=== PATIENT | female | born 2000 | race American Indian/Alaskan Native ===

== ENCOUNTER 2024-10-04 14:59 | Emergency (ER) | payer MEDICAID, SELFPAY ==
[2024-10-04 15:00] VITALS: BMI 38.2
[2024-10-04 15:18] VITALS: BP 137/88; PULSE 100; RESP 18; TEMP 36.9; O2SAT 99
--- NOTE | 2024-10-04 15:27 | XR_ITS ---
Examination: Pelvic ultrasound, transabdominal, complete Technique: Transabdominal ultrasound of the pelvis performed using grayscale imaging Date and time of exam: October 04, 2024 1545 hours INDICATIONS: Pelvic pain vaginal bleeding beginning 3 days ago FINDINGS: Uterus 7.1 cm endometrial stripe 1.6 cm No uterine mass or intrauterine gestation Right ovary 3.0 cm arterial flow Left ovary 7.8 cm arterial flow, simple right ovarian cyst 6.0 x 5.1 x 5.5 cm IMPRESSION: Simple right ovarian cyst 6.0 x 5.1 x 5.5 cm
--- NOTE | 2024-10-04 15:28 | PD.EDRME ---
Rapid Medical Screening Exam [facility] Arrival date/time: 10/04/24 14:59 24-year-old female with no known medical history presents to the emergency room with a chief complaint of vaginal bleeding and pelvic pain x 2 days. Patient denies being and states she has not on her menses. I have greeted and performed a focused initial assessment of this patient. A comprehensive ED assessment and evaluation of the patient, analysis of all test results, and completion of the medical decision making process will be conducted by additional ED providers. Chief Complaint: Vaginal Bleeding Time Seen by Provider: 10/04/24 15:03 Vital signs: Vital Signs Temperature 98.5 F 10/04/24 15:18 Pulse Rate 100 10/04/24 15:18 Respiratory Rate 18 10/04/24 15:18 Blood Pressure 137/88 H 10/04/24 15:18 Pulse Oximetry (%) 99 10/04/24 15:18 Oxygen Delivery Method Room Air 10/04/24 15:18 Vital signs reviewed by provider: Yes
[2024-10-04 15:49] LABS: Basophils % (Auto) 0 % (0-2.5); Eosinophils # (Auto) 0.3 Thou/mm3 (0.0-0.5); Eosinophils % (Auto) 4 % (0-10); Hematocrit 31.7 % (36.0-46.0); Hemoglobin 9.8 g/dL (12.0-16.0); Immature Granulocytes % (Auto) 0 % (0-0); Immature Granulocytes Auto 0.03 Thou/mm3 (0.00-0.00); Lymphocytes # (Auto) 1.4 Thou/mm3 (1.0-4.8); Lymphocytes % (Auto) 16 % (10-50); Mean Corpuscular HGB Conc 30.9 g/dl (31.0-37.0); Mean Corpuscular Hemoglobin 20.5 pg (25.0-35.0); Mean Corpuscular Volume 66 fL (80-100); Monocytes # (Auto) 0.4 Thou/mm3 (0.0-0.8); Monocytes % (Auto) 5 % (0-12); Neutrophils # (Auto) 6.5 Thou/mm3 (1.8-7.7); Neutrophils % (Auto) 75 % (37-80); Nucleated Red Blood Cell % 0 /100 WBC (0); Platelet Count 349 Thou/mm3 (140-440); RDW Standard Deviation 45.1 fL (36.4-46.3); Red Blood Count 4.78 Miln/mm3 (4.00-5.20); White Blood Count 8.7 Thou/mm3 (3.6-11.0)
[2024-10-04 16:04] LABS: Partial Thromboplastin Time 24.3 Seconds (22.0-36.0); Prothrombin Time 10.9 Seconds (9.0-12.2)
[2024-10-04 16:07] LABS: Alanine Aminotransferase 66 U/L (10-49); Albumin, Serum 4.6 gm/dL (3.5-5.0); Albumin/Globulin Ratio 1.3 (1.2-2.2); Alkaline Phosphatase 107 U/L (46-116); Anion Gap 9 (7-16); Aspartate Amino Transferase 86 U/L (0-34); BUN/Creatinine Ratio 8 Ratio (12-20); Bilirubin,Total 0.5 mg/dL (0.3-1.2); Blood Urea Nitrogen 8 mg/dL (9-23); Carbon Dioxide 26.1 mMol/L (20.0-31.0); Chloride 104 mMol/L (98-107); Estimated Creatinine Clearance 104.9 mL/min (>60); Globulin 3.5 gm/dL (2.3-3.5); Glucose 127 mg/dL (74-106); Osmolality,Calculated 277 (275-295); Potassium 3.6 mMol/L (3.4-5.1); Sodium 139 mMol/L (136-145); Total Protein 8.1 gm/dL (5.7-8.2); eGFR > 60 See Note
[2024-10-04 16:13] LABS: HCG,Qualitative Serum Negative
[2024-10-04 18:20] VITALS: BP 116/68; PULSE 83; RESP 17; TEMP 36.6; O2SAT 98
[2024-10-04 18:36] LABS: Path Review Blood Smear Sent to Pathologist
--- NOTE | 2024-10-04 18:57 | PD.EDVAGBL ---
ED OB Contraction Preg RMI/HPI General Chief complaint: Vaginal Bleeding Stated complaint: VAGINAL BLEEDING/PAIN X2 DAYS Time Seen by Provider: 10/04/24 15:03 Arrival date/time: 10/04/24 14:59 RME / HPI RME / HPI Narrative: 24-year-old female with no known medical history presents to the emergency room with a chief complaint of vaginal bleeding and pelvic pain x 2 days. Patient denies being and states she has not on her menses. Her last menstruation was 2 weeks ago. Denies any dizziness denies any other complaints no medication was taken prior to arrival. Related Data Previous Rx's ?Medication ?Instructions ?Recorded medroxyprogesterone 10 mg tablet 10 mg PO QDAY #10 tabs 10/04/24 (Provera) tranexamic acid 650 mg tablet 650 mg PO Q12H #14 tabs 10/04/24 Allergies Allergy/AdvReac Type Severity Reaction Status Date / Time No Known Allergies Allergy Verified 10/04/24 15:03 Review of Systems Review of Systems Narrative Review of Systems: Review of system reviewed and within normal limits except mentioned in HPI ED Exam Narrative Physical exam: VITAL SIGNS: Reviewed. GENERAL APPEARANCE: Alert and interactive, follows commands, no acute distress, HEAD AND FACE: Non-traumatic. ENT: PERRL, pink conjunctivitis, eyelid no trauma, Mucous membrane moist. NECK: Supple, nontender, no nuchal rigidity. CHEST: No tenderness, no crepitus, no paradoxical movement, no retractions. LUNGS: Clear, well ventilated, symmetric, no rales, no wheezing, no ronchi, no stridor, good breath sounds bilaterally. HEART: Regular rate, regular rhythm, no murmur, no gallops. ABDOMEN: Soft, positive bowel sounds, nondistended, no guarding, nontender, no rebound, no masses, RECTAL: Deferred. GENITAL: Deferred. NEUROLOGICAL: Gross motor function intact sensory function intact, Appropriate for age. MUSCULOSKELETAL: low back nontender, full range of motion. EXTREMITIES: Nontender, full range of motion. SKIN: Color pink, dry, no rash, no lacerations, no abrasions, no contusions. LYMPHATICS: Deferred. Course Quality Measures none Orders Category Date Time Status US pelvic complete Stat Exams 10/04/24 15:27 Completed CBC Stat Lab 10/04/24 15:37 Completed CMP [Comprehensive Metabolic Panel] Stat Lab 10/04/24 15:37 Completed HCG,Qualitative Serum Stat Lab 10/04/24 15:37 Completed PT [Prothrombin Time with INR] Stat Lab 10/04/24 15:37 Completed PTT [Partial Thromboplastin Time] Stat Lab 10/04/24 15:37 Completed Path Review Blood Smear Stat Lab 10/04/24 15:37 Completed Type and Screen Stat Lab 10/04/24 15:37 Completed Vital Signs Vital signs: Vital Signs Temperature 98.5 F 10/04/24 15:18 Pulse Rate 100 10/04/24 15:18 Respiratory Rate 18 10/04/24 15:18 Blood Pressure 137/88 H 10/04/24 15:18 Pulse Oximetry (%) 99 10/04/24 15:18 Oxygen Delivery Method Room Air 10/04/24 15:18 Vaginal Bleeding MDM Narrative MDM Narrative: 24-year-old female with no known medical history presents to the emergency room with a chief complaint of vaginal bleeding and pelvic pain x 2 days. Patient denies being and states she has not on her menses. Her last menstruation was 2 weeks ago. Denies any dizziness denies any other complaints no medication was taken prior to arrival. Patient hemoglobin was noted to be 9.8, hematocrit of 31.7 blood sugar labs unremarkable she is not ultrasound showed ovarian cyst otherwise unremarkable. Patient will be sent home on Provera and tranexamic acid Patient appears nontoxic and hemodynamically stable. Patient discharged home and instructed to follow-up with primary care provider in 24 to 48 hours. Instructed to return to the emergency department immediately if worsening of symptoms Patient data External records reviewed:: None Clinical information provided by:: patient Social determinants that could affect healthcare access:: none Patient has the following chronic illnesses:: None How is presenting disease/condition affected by chronic disease/condition?: no chronic disease Evaluation data The following diagnostics were reviewed and interpreted by me:: lab results and radiology exam(s) Lab and/or radiology exams considered but not ordered:: None Interpretation Summary: See results MDM Medications / Prescriptions Medications or Prescriptions considered but not ordered:: None Medication administrations:: None Consultations Consultation(s) initiated? (list below): No Diagnosis Vaginal Bleeding Differential Diagnosis: dysfunctional uterine bleeding and menometrorrhagia Most likely diagnosis given after review of the tests above:: Menometrorrhagia Admission Indicated Admission indicated?: not indicated Explain why admission is indicated or not indicated:: Stable Admission Request Was there a request for admission?: No Disposition Plan Disposition Plan: Discharge Discharge Attestation Discharge Attestation: The patient was given an opportunity to ask questions and understood the discharge instructions. Discharge instructions specifically effects, indications for sooner follow up or return to the emergency department, and the expected course of current diagnosis. Patient condition: Stable Discharge Plan Plan Patient Disposition: HOME (Self Care) Discharge Disposition comment: stable Prescriptions/Referrals Prescriptions/Med Rec: New medroxyprogesterone [Provera] 10 mg tablet 10 mg PO QDAY Qty: 10 0RF tranexamic acid 650 mg tablet 650 mg PO Q12H Qty: 14 0RF Referrals: No Primary/Family,Physician [Primary Care Provider] - In 1 week Problem List Clinical Impression: Dysfunctional uterine bleeding Patient/Caregiver Discharge Instructions Education Materials: ED Dysfunctional Uterine Bleeding Additional Instructions: Thank you for the opportunity for serving you today. You are stable for discharged . You are advised to: Follow-up with your PCP in 1 to 2 days and as per referral to [facility] Return to ED for worsening of symptoms Increase oral fluids Take medication as prescribed Print Language: French Stand Alone Forms: [employer] Award Info., Patient Portal Info Letter
[2024-10-04 19:25] VITALS: BP 128/65; PULSE 85; RESP 18; TEMP 36.7; O2SAT 95
== END 2024-10-04 19:27 | disposition home or self-care (01) ==
PROVIDERS: Nurse Practitioner Family; Emergency Provider Family Medicine
DX: N93.8 Other specified abnormal uterine and vaginal bleeding (principal); R10.2 Pelvic and perineal pain
CPT/HCPCS: 36415; 76856; 80053; 84703; 85025; 85610; 85730; 86850; 86900; 86901; 99284

== ENCOUNTER 2024-10-24 22:47 | Emergency (ER) | payer MEDICAID, SELFPAY ==
[2024-10-24 22:48] VITALS: BMI 39.1
[2024-10-24 23:31] VITALS: BP 125/84; PULSE 94; RESP 18; TEMP 36.9; O2SAT 98
--- NOTE | 2024-10-24 23:42 | PD.EDRME ---
Rapid Medical Screening Exam [facility] Arrival date/time: 10/24/24 22:47 Chief Complaint: Vaginal Bleeding Time Seen by Provider: 10/24/24 23:37 Vital signs: Vital Signs Temperature 98.5 F 10/24/24 23:31 Pulse Rate 94 10/24/24 23:31 Respiratory Rate 18 10/24/24 23:31 Blood Pressure 125/84 10/24/24 23:31 Pulse Oximetry (%) 98 10/24/24 23:31 Oxygen Delivery Method Room Air 10/24/24 23:31 Pulse ox is 98% room air Vital signs reviewed by provider: Yes RME Narrative: Patient complains of vaginally bleeding since 03 October with blood clots and tissue seen. Patient shows concern for using 7 pads per day. LMP was September 13
[2024-10-25 00:06] LABS: Basophils % (Auto) 0 % (0-2.5); Eosinophils # (Auto) 0.5 Thou/mm3 (0.0-0.5); Eosinophils % (Auto) 5 % (0-10); Hematocrit 29.5 % (36.0-46.0); Immature Granulocytes % (Auto) 0 % (0-0); Immature Granulocytes Auto 0.03 Thou/mm3 (0.00-0.00); Lymphocytes # (Auto) 1.7 Thou/mm3 (1.0-4.8); Lymphocytes % (Auto) 18 % (10-50); Mean Corpuscular HGB Conc 29.8 g/dl (31.0-37.0); Mean Corpuscular Volume 67 fL (80-100); Monocytes # (Auto) 0.6 Thou/mm3 (0.0-0.8); Monocytes % (Auto) 7 % (0-12); Neutrophils # (Auto) 6.4 Thou/mm3 (1.8-7.7); Neutrophils % (Auto) 70 % (37-80); Nucleated Red Blood Cell % 0 /100 WBC (0); Platelet Count 358 Thou/mm3 (140-440); RDW Standard Deviation 42.5 fL (36.4-46.3); White Blood Count 9.1 Thou/mm3 (3.6-11.0)
[2024-10-25 00:07] LABS: Hemoglobin 8.8 g/dL (12.0-16.0)
[2024-10-25 00:45] LABS: Alanine Aminotransferase 93 U/L (10-49); Albumin, Serum 4.8 gm/dL (3.5-5.0); Albumin/Globulin Ratio 1.5 (1.2-2.2); Alkaline Phosphatase 98 U/L (46-116); Anion Gap 10 (7-16); BUN/Creatinine Ratio 12 Ratio (12-20); Beta HCG,Quantitative < 1 mIU/mL (<5.0); Bilirubin,Total 0.7 mg/dL (0.3-1.2); Blood Urea Nitrogen 11 mg/dL (9-23); Calcium 9.9 mg/dL (8.3-10.6); Calcium (Corrected) 9.9 mg/dL (8.5-10.1); Carbon Dioxide 26.3 mMol/L (20.0-31.0); Chloride 100 mMol/L (98-107); Creatinine (Component) 0.9 mg/dL (0.6-1.3); Estimated Creatinine Clearance 117.9 mL/min (>60); Globulin 3.2 gm/dL (2.3-3.5); Glucose 118 mg/dL (74-106); Lipase 56 U/L (12-53); Osmolality,Calculated 272 (275-295); Potassium 3.7 mMol/L (3.4-5.1); Sodium 136 mMol/L (136-145); eGFR > 60 See Note
--- NOTE | 2024-10-25 01:54 | XR_ITS ---
Examination: Transvaginal ultrasound of the pelvis, complete Technique: Transvaginal sonographic images pelvis performed using justin scale imaging Exam date and time: October 25, 2024 0214 hours INDICATIONS: Heavy vaginal bleeding and pelvic pain beginning one month ago FINDINGS: Uterus 6.6 cm endometrial stripe 0.44 cm No uterine mass or intrauterine gestation Ovaries obscured by bowel gas Left ovarian simple cyst 5.4 x 4.0 x 5.4 cm IMPRESSION: No uterine mass or intrauterine gestation Left ovarian simple cyst 5.4 x 4.0 x 5.4 cm.
--- NOTE | 2024-10-25 02:55 | EDNOTE_ITS ---
ED OB Contraction Preg RMI/HPI General Chief complaint: Vaginal Bleeding Stated complaint: VAG BLEEDING AND CRAMPING X 10/03 Time Seen by Provider: 10/24/24 23:37 Arrival date/time: 10/24/24 22:47 RME / HPI RME / HPI Narrative: Patient complains of vaginally bleeding since 03 October with blood clots and tissue seen. Patient shows concern for using 7 pads per day. LMP was September 13 Dr. Segura?s Main ED Evaluation: 24yo female with no significant past medical history presents to the ED for a chief complaint of vaginal bleeding. Patient states she's been having pelvic pain and vaginal bleeding for the last couple of weeks. Patient states she was passing blood clots today, so she came in for evaluation. Patient denies any fever, chills, N/V or any other associated symptoms. NKA. Related Data Previous Rx's ?Medication ?Instructions ?Recorded medroxyprogesterone 10 mg tablet 10 mg PO QDAY #10 tab s 10/04/24 (Provera) tranexamic acid 650 mg tablet 650 mg PO Q12H #14 tabs 10/04/24 vitamins no.68-iron 28 1 cap PO QDAY #30 caps 10/25/24 mg-folate no.6 1 mg-dha 400 mg capsule (Prenate Enhance) Allergies Allergy/AdvReac Type Severity Reaction Status Date / Time No Known Allergies Allergy Verified 10/04/24 15:03 Review of Systems Review of Systems Systems Reviewed: All systems reviewed, normal except as documented Past Medical History Past Medical History CARDIAC: Negative Congestive Heart Failure RESPIRATORY: Negative Chronic Obstructive Pulmonary Disease (COPD) GENITOURINARY: Negative Renal Disease ENDOCRINE: Negative Diabetes Mellitus Type 1 or Diabetes Mellitus Type 2 Social History SMOKING STATUS: Never smoker ED Exam Narrative Physical exam: GENERAL APPEARANCE: alert and oriented x 4, well-developed, well-nourished, no acute distress VITALS: All vitals were reviewed and the pulse ox is 98% on room air, which is normal according to my interpretation. HEENT: Normocephalic, atraumatic; pupils equal, round, reactive to light; EOMI; mucous membranes pink, moist; oropharynx clear NECK: Supple LUNGS: CTABL; no wheezes, no rales, no rhonchi HEART: Regular rate, regular rhythm; normal S1, S2; no murmurs ABDOMEN: non distended; normal BS; soft, mild suprapubic tenderness, no guarding, no rebound; no masses, no organomegaly, no hernia BACK: no CVA tenderness EXTREMITIES: atraumatic; no edema NEUROLOGIC: awake; alert and oriented x4; cranial nerves II-XII grossly intact; no focal sensory or motor deficits PSYCHIATRIC: appropriate mood and affect SKIN: warm, dry, normal color; no rashes Course Quality Measures none Orders Category Date Time Status US transvaginal Stat Exams 10/25/24 01:54 Taken Beta HCG,Quantitative Stat Lab 10/24/24 23:50 Completed CBC Stat Lab 10/24/24 23:50 Completed CMP [Comprehensive Metabolic Panel] Stat Lab 10/24/24 23:50 Completed Lipase Stat Lab 10/24/24 23:50 Completed Rh Testing Only Stat Lab 10/24/24 23:50 Completed HYDROcodone*/APAP 5/325 [[place] 5/325] Med 10/25/24 03:11 Discontinued 1 tab PO X1 ONE Ketorolac Inj [Toradol Inj] Med 10/25/24 03:11 Discontinued 30 mg IM X1 ONE Reevaluation(s) Reevaluation #1: Discussed results with the patient at bedside. Patient states she was prescribed two medication during her last visit in September, reporting they did not help with her vaginal bleeding. She notes she still has not followed-up with a [employer], stating she has to be referred out to one. I recommended the patient to follow- up with her PCP as scheduled on Tuesday and that she will still need to be referred to a network administrator. Patient verbalized understanding. Patient is stable to be discharged home. Time: 03:47 Vital Signs Vital signs: Vital Signs Temperature 98.5 F 10/24/24 23:31 Pulse Rate 94 10/24/24 23:31 Respiratory Rate 18 10/24/24 23:31 Blood Pressure 125/84 10/24/24 23:31 Pulse Oximetry (%) 98 10/24/24 23:31 Oxygen Delivery Method Room Air 10/24/24 23:31 Vaginal Bleeding MDM Narrative MDM Narrative: Scribe Attestation: 10/25/24 - Anne Casillas am scribing for and in the presence of Dr. Segura. Patient data External records reviewed:: [facility] previous records (Per chart review, patient was seen here on 10/04/24 for dysfunctional uterine bleeding.) Clinical information provided by:: patient Social determinants that could affect healthcare access:: none Patient has the following chronic illnesses:: none How is presenting disease/condition affected by chronic disease/condition?: no chronic disease Evaluation data The following diagnostics were reviewed and interpreted by me:: lab results and radiology exam(s) Lab and/or radiology exams considered but not ordered:: none Interpretation Summary: WBC normal, HnH 8.8/29.5, CMP normal, Beta HCG <1. ------ Telerad Preliminary Report Draft Patient: BENI JONES Record#: [id number] Birthdate: 2000 Age/Sex: 24 / F Location: [facility] Attending Dr: Ordering Physician: Date of Service: Procedure(s): Accession Number(s): cc: ~ Pelvic ultrasound (transvaginal) with Doppler. October 25, 2024 0214 hours Clinical history: Vaginal bleeding. Technique: Real-time, grayscale, transvaginal pelvic ultrasound was performed using Duplex scanning including arterial inflow, venous outflow, color and spectral Doppler. Comparison: None. Findings: The uterus is normal in size measuring 6.6 x 3.7 x 4.8 cm. The endometrium is unremarkable and measures 0.4 cm. Complex cystic lesion in the cervix measuring 0.7 x 0.8 x 1.2 cm. The right ovary was not visualized. Large cystic lesion in the left pelvis measuring 5.4 x 4.1 x 5.4 cm. There is no adnexal mass. There is no free fluid on the submitted images. Impression: 1. Complex cystic lesion in the cervix, further evaluation to exclude cervical cancer is recommended. 2. The ovaries were not visualized, correlation with MRI should be considered. 3. Large cystic lesion in the left pelvis, short-term follow-up is recommended. Report Electronically Signed By: Francisco Garcia 10/25/2024 3:26:03 AM Medications / Prescriptions Medications or Prescriptions considered but not ordered:: none Medication administrations:: Medication Administration History Discontinued Medications Hydrocodone Bitart/Acetaminophen (Hydrocodone/Apap 5/325 Tablet) 1 tab PO X1 ONE Stop: 10/25/24 03:12 Last Admin: 10/25/24 03:42 Dose: 1 tab Documented By: PRADEEP Ketorolac Tromethamine (Ketorolac Inj 30 Mg/Ml Vial) 30 mg IM X1 ONE Stop: 10/25/24 03:12 Last Admin: 10/25/24 03:43 Dose: 30 mg Documented By: PRADEEP see above Consultations Consultation(s) initiated? (list below): No Diagnosis Vaginal Bleeding Differential Diagnosis: other (PCOS, ovarian cyst, ovarian torsion, uterine fibroid, nabothian cyst) Most likely diagnosis given after review of the tests above:: see clinical impression below Admission Indicated Admission indicated?: not indicated Admission Request Was there a request for admission?: No Disposition Plan Disposition Plan: Discharge Discharge Attestation Discharge Attestation: The patient and all family members were given an opportunity to ask questions and understood the discharge instructions. Discharge instructions specifically effects, indications for sooner follow up or return to the emergency department, and the expected course of current diagnosis. Patient condition: Stable Discharge Plan Plan Patient Disposition: HOME (Self Care) Prescriptions/Referrals Prescriptions/Med Rec: New Prenate Enhance 28 mg iron- 1 mg-400 mg capsule 1 cap PO QDAY Qty: 30 0RF No Action medroxyprogesterone [Provera] 10 mg tablet 10 mg PO QDAY Qty: 10 0RF tranexamic acid 650 mg tablet 650 mg PO Q12H Qty: 14 0RF Referrals: Narayan Peguero PA-C [Primary Care Provider] - In 1 week Problem List Clinical Impression: Dysfunctional uterine bleeding, Ovarian cyst, Cyst of cervix Patient/Caregiver Discharge Instructions Education Materials: Understanding Uterine Bleeding, ED Ovarian Cyst Additional Instructions: Follow up with log deckman for repeat ultrasound and further management Print Language: Maori Stand Alone Forms: [employer] Award Info., Patient Portal Info Letter
--- NOTE | 2024-10-25 03:26 | PRELIM_ITS ---
Pelvic ultrasound (transvaginal) with Doppler. October 25, 2024 0214 hours Clinical history: Vaginal bleeding. Technique: Real-time, grayscale, transvaginal pelvic ultrasound was performed using Duplex scanning including arterial inflow, venous outflow, color and spectral Doppler. Comparison: None. Findings: The uterus is normal in size measuring 6.6 x 3.7 x 4.8 cm. The endometrium is unremarkable and measures 0.4 cm. Complex cystic lesion in the cervix measuring 0.7 x 0.8 x 1.2 cm. The right ovary was not visualized. Large cystic lesion in the left pelvis measuring 5.4 x 4.1 x 5.4 cm. There is no adnexal mass. There is no free fluid on the submitted images. Impression: 1. Complex cystic lesion in the cervix, further evaluation to exclude cervical cancer is recommended. 2. The ovaries were not visualized, correlation with MRI should be considered. 3. Large cystic lesion in the left pelvis, short-term follow-up is recommended. Report Electronically Signed By: Francisco Garcia 10/25/2024 3:26:03 AM [EST]
[2024-10-25] MEDS: HYDROcodone/APAP 5/325 TABLET 1 TAB PO (03:42)
[2024-10-25] MEDS: KETOROLAC INJ 30 MG/ML VIAL IM (03:43)
[2024-10-25 03:53] VITALS: BP 101/66; PULSE 64; RESP 18; TEMP 36.9; O2SAT 98
[2024-10-25 04:01] VITALS: BP 101/66; PULSE 80; RESP 18; O2SAT 100
== END 2024-10-25 04:03 | disposition home or self-care (01) ==
PROVIDERS: Physician Assistant; Emergency Provider Emergency Medicine; PCP Physician Assistant
DX: N83.292 Other ovarian cyst, left side (principal); N88.8 Other specified noninflammatory disorders of cervix uteri
CPT/HCPCS: 36415; 76830; 80053; 83690; 84702; 85025; 86901; 96372; 99284; J1885; A9270

== ENCOUNTER 2025-02-25 20:42 | Emergency (ER) | payer MEDICAID, SELFPAY ==
[2025-02-25 20:44] VITALS: BMI 41.5
[2025-02-25 20:53] VITALS: BP 105/66; PULSE 140; RESP 24; TEMP 38.8; O2SAT 97
--- NOTE | 2025-02-25 20:55 | XR_ITS ---
Examination: CT abdomen and pelvis without contrast. Coronal 3-D reconstructions. Sagittal 2-D reconstructions. Date and time of exam: February 25, 2025, 10 0 2:00 p.m. INDICATIONS: Abdominal pain dizziness diarrhea nausea vomiting and diarrhea today CTDI: vol (mGy): 21.82 DLP: (mGycm): 1246 Technique: Axial images of the abdomen have been obtained, 3 mm slice thickness Intravenous contrast material has not been administered. Low dose protocols were performed. One or more of the following dose reduction techniques were used; automated exposure control, adjustment of the mA and/or KV according to patient size, use of iterative reconstruction technique. Findings: No focal liver or splenic lesions No gallstones No extrahepatic biliary duct dilatation No pancreatic mass Normal adrenal glands. No renal or ureteral calculi, no hydronephrosis Aorta normal size 6 mm fat-containing umbilical hernia Small lymph nodes in the right lower mesentery Normal appendix No bowel obstruction 5.7 cm left 2.5 cm right ovarian cysts No uterine mass Contracted urinary bladder Intact osseous structures IMPRESSION: No renal or ureteral calculi, no hydronephrosis Normal appendix 5.7 cm left 2.5 cm right ovarian cysts, please see the transvaginal pelvic sonogram October 25, 2024
--- NOTE | 2025-02-25 20:55 | PD.EDRME ---
Rapid Medical Screening Exam [facility] Arrival date/time: 02/25/25 20:42 This is a case of 24-year-old female with no medical history came into the emergency room due to abdominal pain associated with nausea vomiting for 3 days worsening of the symptoms this patient decided to start consult here in the emergency room Chief Complaint: Abdominal Pain Time Seen by Provider: 02/25/25 20:54
--- NOTE | 2025-02-25 20:58 | EKG_ITS ---
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
--- NOTE | 2025-02-25 21:33 | PD.EDABDPN ---
ED Abdominal Pain RME/HPI General Chief Complaint: Abdominal Pain Stated complaint: ABD PAIN, DIZZY, DIARRHEA Time seen by provider: 02/25/25 20:54 Arrival date/time: 02/25/25 20:42 RME / HPI RME / HPI narrative: 02/25/25 20:42 This is a case of 24-year-old female with no medical history came into the emergency room due to abdominal pain associated with nausea vomiting for 3 days worsening of the symptoms this patient decided to start consult here in the emergency room DR. CANAS MAIN ED EVALUATION: Patient presents with ongoing watery, occasionally explosive non-bloody diarrhea for approximately 24 hours duration, notes total episodes of 10, with associated diffuse abdominal cramping, nausea without emesis, and subjective fever at home with ongoing fatigue/lightheadedness with standing. No obvious infectious exposure. Notes consumption of shrimp at approximately 10 PM last night. No family or friends reported sick, no antibitic therapy, or recent travel. PMH: Unremarkable for DM, Asthma, or HTN PSH: Non-contributory Allergies: None reported Social: Binge Alcohol Consumption on Weekends, No tobacco or Illicit Drug Abuse Related Data Previous Rx's ?Medication ?Instructions ?Recorded medroxyprogesterone 10 mg tablet 10 mg PO QDAY #10 tabs 10/04/24 (Provera) tranexamic acid 650 mg tablet 650 mg PO Q12H #14 tabs 10/04/24 vitamins no.68-iron 28 1 cap PO QDAY #30 caps 10/25/24 mg-folate no.6 1 mg-dha 400 mg capsule (Prenate Enhance) Allergies Allergy/AdvReac Type Severity Reaction Status Date / Time No Known Allergies Allergy Verified 10/04/24 15:03 Review of Systems Review of Systems Systems Reviewed: All systems reviewed, normal except as documented ED Exam Narrative Physical exam: GEN. APPEARANCE: The patient is alert awake oriented X-3 under mild distress c/o generalized abdominal pain, lying down comfortably, does not look ill/toxic. Patient has good eye contact. Patient is cooperative. Notably febrile and tachycardic upon arrival VITALS: All vitals were reviewed and the pulse ox is 97%, which is normal according to my interpretation HEENT: Normocephalic, atraumatic and nontender. Pupils are equal and reactive. Oral mucosa is moist. NECK: Supple, nontender, no meningismus, no JVD. There is no thyromegaly and no lymphadenopathy. CHEST: Nontender on palpation no deformity and no crepitus. CARDIOVASCULAR: Tachycardic, no murmur or gallop rub or extra beats. LUNGS: Clear to auscultation bilaterally with symmetrical chest rise. No laboring tachypnea or wheezing. No intercostal subcostal retraction. No rales and no rhonchi. ABDOMEN: Soft, obese with generalized tenderness, slight guarding, although no gross peritoneal findings. There are no abnormal masses palpated. No pulsatile masses or bruits. Active and normal bowel sounds. EXTREMITIES:.Normal inspection and palpation. No edema. No cyanosis. Patient is able to move all 4 extremities well SKIN: Warm and dry, no rashes noted. MUSCULOSKELETAL: No lumbar or midline bony tenderness. There is no CVA tenderness. No paraspinal muscle spasm or tenderness. NEURO: Cranial nerves II through XII grossly intact. There are no focal neurologic deficits noted. GCS is 15 PSYCHIATRIC: Patient is in normal mood and affect, cooperative. LYMPHATICS: No major lymphadenopathy noted. Course Course Course Narrative: Sepsis alert initiated. Patient meets the following SIRS criteria: T, HR, RR. Orders made at this time are congruent with ED Adult Sepsis Order List. Re-evaluation is to be completed following the administration of IV fluids and antibiotics. SIRS Criteria: Temperature > 100.9?F, Heart rate >90/min, Respiratory rate >20/min Quality Measures Current suspected stage: sepsis Possible source: GI tract/intra-abdominal Blood cultures ordered: yes Antibiotic ordered: Yes Pertinent labs: 02/25/25 22:07 Lactic Acid 1.9 mMol/L (0.4-2.0) Procalcitonin 0.14 ng/ml (0.0-0.49) sepsis Orders Category Date Time Status Continuous Pulse Oximetry STAT Care 02/25/25 21:40 Completed EKG (ED ONLY) *Do not use* NOW Care 02/25/25 20:58 Completed EKG (ED ONLY) *Do not use* NOW Care 02/25/25 21:04 Completed NPO STAT Care 02/25/25 21:40 Active Strict Intake and Output Routine Care 02/25/25 21:[address] abdomen pelvis wo con Stat Exams 02/25/25 20:55 Completed EKG (ED Only) Stat Exams 02/25/25 20:58 Draft EKG (ED Only) Stat Exams 02/25/25 21:04 Ordered B-Type Natriuretic Peptide Stat Lab 02/25/25 22:07 Completed Blood Culture (Lab) Stat Lab 02/25/25 21:50 Received CBC Stat Lab 02/25/25 20:15 Completed CBC Stat Lab 02/25/25 22:07 Completed Comprehensive Metabolic Panel Stat Lab 02/25/25 20:15 Completed HCG Qualitative,Urine Stat Lab 02/26/25 00:11 Completed Lactic Acid [Lactate (Lactic Acid)] Stat Lab 02/25/25 22:07 Completed Lipase Stat Lab 02/25/25 20:15 Completed Magnesium Stat Lab 02/25/25 22:07 Completed Phosphorous Stat Lab 02/25/25 22:07 Completed Procalcitonin Stat Lab 02/25/25 22:07 Completed Stool Culture Stat Lab 02/26/25 00:00 Received Troponin I Stat Lab 02/25/25 20:15 Completed Urinalysis, C/S if Indicated Stat Lab 02/26/25 00:11 Completed Acetaminophen Tab [Tylenol ES Tab] Med 02/25/25 22:00 Discontinued 1,000 mg PO X1 ONE Magnesium Sulfate 2 GM Ivpb [Magnesium Sulfate Ivpb] Med 02/26/25 00:38 Active 2 gm in 50 ml IV X1 Morphine* Inj Med 02/26/25 00:43 Discontinued 4 mg IVP X1 ONE Prochlorperazine Inj [Compazine Inj] Med 02/26/25 00:44 Discontinued 5 mg IV X1 ONE Ringers Lactated 1000 ml [Lactated Ringers] 1,000 ml Med 02/25/25 21:43 Discontinued IV 999 mls/hr Sodium Chloride 0.9% 1000 ml [Ns] 1,710 ml Med 02/25/25 21:39 Discontinued IV 1,710 mls/hr cefTRIAXone/D5w 1gm IV premix [Rocephin/D5w 1gm IV Med 02/25/25 21:43 Discontinued premix] 1 gm in 50 ml IV X1 Vital Signs Vital signs: Vital Signs Temperature 102 F H 02/25/25 20:53 Pulse Rate 140 H 02/25/25 20:53 Respiratory Rate 24 H 02/25/25 20:53 Blood Pressure 105/66 02/25/25 20:53 Pulse Oximetry (%) 97 02/25/25 20:53 Oxygen Delivery Method Room Air 02/25/25 20:53 Abdominal Pain MDM MDM Narrative MDM Narrative:: Scribe Attestation: I, Cherelle Bess, am scribing for and in the presence of Dr. Canas. Provider Notation: Although this document has been carefully reviewed, there may still be some phonetic and other typographical errors. These errors are purely grammatical due to imperfections in the software program and should not be construed in any way to compromise the substance of the patient's medical care during this visit. Patient presents with ongoing watery, occasionally explosive non-bloody diarrhea for approximately 24 hours duration, notes total episodes of 10, with associated diffuse abdominal cramping, nausea without emesis, and subjective fever at home with ongoing fatigue/lightheadedness with standing. No obvious infectious exposure. Notes consumption of shrimp at approximately 10 PM last night. Please see PE findings. Laboratory markers, including CBC and serum chemistries, demonstrate normal WBC, chronic anemia, and no thrombocytopenia. Serum chemistries demonstrate normal renal function, lactic acid normal high of 1.9, Magnesium of 1.7, and Procalcitonin of 0.14. 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 Treated aggressively with IV fluids to correct volume depletion, anti-pyuretics to control fever, and imperic ABX administerd after cultures obtained, vitals improved. Patient referred for CT scan of Abdomen/Pelvis which demonstrated small lymph nodes throughout RLQ mesentery, no bowel inflammation identified, appendix visualized and deemed normal, as well as incidental finding of BL ovarian cyst. On serial evaluation patient required narcotic analgesics. Will reassess and formulate final disposition. Will attempt stool sample, differ antibiotics, and treated symptomatically. Precautionary instruction issued, advised clear liquid diet, and discharged with anti-spasmotic, anti-emetic, and analgesics. Patient data External records reviewed:: [facility] previous records (Reviewed prior ED records from 10/25/24. Patient was seen for Cyst of cervix.) Clinical information provided by:: patient Social determinants that could affect healthcare access:: alcohol use Patient has the following chronic illnesses:: None reported How is presenting disease/condition affected by chronic disease/condition?: no chronic disease Evaluation data The following diagnostics were reviewed and interpreted by me:: lab results, radiology exam(s) and EKG tracing(s) (EKG at 20:59 shows normal sinus tachycardia at 136, normal axis, no ectopy, no signs of acute ischemia, per my interpretation.) Lab and/or radiology exams considered but not ordered:: None Interpretation Summary: RADIOLOGY Abdomen/Pelvis CT: Findings: No focal liver or splenic lesions No gallstones No extrahepatic biliary duct dilatation No pancreatic mass Normal adrenal glands. No renal or ureteral calculi, no hydronephrosis Aorta normal size 6 mm fat-containing umbilical hernia Small lymph nodes in the right lower mesentery Normal appendix No bowel obstruction 5.7 cm left 2.5 cm right ovarian cysts No uterine mass Contracted urinary bladder Intact osseous structures IMPRESSION: No renal or ureteral calculi, no hydronephrosis Normal appendix 5.7 cm left 2.5 cm right ovarian cysts, please see the transvaginal pelvic sonogram October 25, 2024 Medications / Prescriptions Medications or Prescriptions considered but not ordered:: None Medication administrations:: Medication Administration History Magnesium Sulfate (Magnesium Sulfate Ivpb) 2 gm in 50 mls @ 25 mls/hr IV X1 ONE Stop: 02/26/25 02:37 Discontinued Medications Acetaminophen (Acetaminophen 500 Mg Tablet) 1,000 mg PO X1 ONE Stop: 02/25/25 22:01 Last Admin: 02/25/25 22:11 Dose: 1,000 mg Documented By: ASHLY Sodium Chloride (Ns) 1,710 mls @ 1,710 mls/hr 30 ml/kg infuse over 60 min (1710 ml) IV .Q1H ONE Stop: 02/25/25 22:38 Last Admin: 02/25/25 21:54 Dose: 1,710 mls/hr Documented By: ASHLY Lactated Ringer's (Lactated Ringers) 1,000 mls @ 999 mls/hr IV .Q1H1M ONE Stop: 02/25/25 22:43 Last Infusion: 02/26/25 00:03 Dose: Infused Documented By: Admin: 02/25/25 22:40 Dose: 999 mls/hr Documented By: ASHLY Ceftriaxone Sodium/Dextrose (Rocephin/D5w 1gm Iv Premix) 1 gm in 50 mls @ 100 mls/hr IV X1 ONE Stop: 02/25/25 22:12 Last Infusion: 02/25/25 23:22 Dose: Infused Documented By: Admin: 02/25/25 22:18 Dose: 100 mls/hr Documented By: ASHLY Morphine Sulfate (Morphine Sulf Inj 4 Mg/Ml Vial) 4 mg IVP X1 ONE Stop: 02/26/25 00:44 Prochlorperazine Edisylate (Prochlorperazine Inj 5 Mg/Ml Vial 2 Ml) 5 mg IV X1 ONE; Protocol Stop: 02/26/25 00:45 See above if any Consultations Consultation(s) initiated? (list below): No Diagnosis Differential diagnosis abdominal pain: abdominal pain, acute appendicitis, calculus of kidney, constipation, diverticulitis, endometriosis, gastroenteritis, pancreatitis and small bowel obstruction Most likely diagnosis given after review of the tests above:: Acute diarrhea Admission Indicated Admission indicated?: not indicated Explain why admission is indicated or not indicated:: Patient does not meet admission criteria Admission Request Was there a request for admission?: No Disposition Plan Disposition Plan: Discharge Discharge Attestation Discharge Attestation: The patient and all family members were given an opportunity to ask questions and understood the discharge instructions. Discharge instructions specifically effects, indications for sooner follow up or return to the emergency department, and the expected course of current diagnosis. Patient condition: Stable Discharge Plan Plan Patient Disposition: HOME (Self Care) Prescriptions/Referrals Prescriptions/Med Rec: No Action Prenate Enhance 28 mg iron- 1 mg-400 mg capsule 1 cap PO QDAY Qty: 30 0RF medroxyprogesterone [Provera] 10 mg tablet 10 mg PO QDAY Qty: 10 0RF tranexamic acid 650 mg tablet 650 mg PO Q12H Qty: 14 0RF Referrals: Narayan Peguero PA-C [Primary Care Provider] - In 1 week Problem List Clinical Impression: Acute diarrhea Patient/Caregiver Discharge Instructions Print Language: Maori Stand Alone Forms: Demetra Award Info., Patient Portal Info Letter
[2025-02-25 21:42] LABS: Basophils # (Auto) 0.0 Thou/mm3 (0.0-0.2); Basophils % (Auto) 0 % (0-2.5); Eosinophils # (Auto) 0.1 Thou/mm3 (0.0-0.5); Eosinophils % (Auto) 1 % (0-10); Hematocrit 30.5 % (36.0-46.0); Hemoglobin 9.0 g/dL (12.0-16.0); Immature Granulocytes Auto 0.02 Thou/mm3 (0.00-0.00); Lymphocytes # (Auto) 1.2 Thou/mm3 (1.0-4.8); Lymphocytes % (Auto) 11 % (10-50); Mean Corpuscular HGB Conc 29.5 g/dl (31.0-37.0); Mean Corpuscular Hemoglobin 19.3 pg (25.0-35.0); Mean Corpuscular Volume 65 fL (80-100); Monocytes # (Auto) 0.5 Thou/mm3 (0.0-0.8); Monocytes % (Auto) 5 % (0-12); Neutrophils # (Auto) 9.0 Thou/mm3 (1.8-7.7); Neutrophils % (Auto) 83 % (37-80); Nucleated Red Blood Cell # 0.00 Thou/mm3 (0.00-0.00); Nucleated Red Blood Cell % 0 /100 WBC (0); Platelet Count 300 Thou/mm3 (140-440); RDW Standard Deviation 44.0 fL (36.4-46.3); Red Blood Count 4.67 Miln/mm3 (4.00-5.20); White Blood Count 10.9 Thou/mm3 (3.6-11.0)
[2025-02-25 21:47] VITALS: BP 116/89; PULSE 124; RESP 21; TEMP 39.6; O2SAT 100
[2025-02-25] MEDS: SODIUM CHLORIDE 0.9% 1000 ML 1,710 ML 1710 ML IV (21:54)
[2025-02-25 22:01] LABS: Alanine Aminotransferase 73 U/L (10-49); Albumin, Serum 4.5 gm/dL (3.5-5.0); Albumin/Globulin Ratio 1.4 (1.2-2.2); Alkaline Phosphatase 94 U/L (46-116); Anion Gap 11 (7-16); Aspartate Amino Transferase 142 U/L (0-34); BUN/Creatinine Ratio 6 Ratio (12-20); Bilirubin,Total 0.9 mg/dL (0.3-1.2); Blood Urea Nitrogen < 5 mg/dL (9-23); Calcium 9.2 mg/dL (8.3-10.6); Calcium (Corrected) 9.2 mg/dL (8.5-10.1); Carbon Dioxide 24.8 mMol/L (20.0-31.0); Chloride 101 mMol/L (98-107); Creatinine (Component) 0.8 mg/dL (0.6-1.3); Estimated Creatinine Clearance 137.4 mL/min (>60); Globulin 3.3 gm/dL (2.3-3.5); Glucose 116 mg/dL (74-106); Lipase 40 U/L (12-53); Osmolality,Calculated 272 (275-295); Potassium 3.6 mMol/L (3.4-5.1); Sodium 137 mMol/L (136-145); Total Protein 7.8 gm/dL (5.7-8.2); Troponin I < 0.002 ng/mL (0.0-0.045); eGFR > 60 See Note
[2025-02-25 22:11] VITALS: TEMP 39.6
[2025-02-25] MEDS: ACETAMINOPHEN 500 MG TABLET 1000 MG PO (22:11)
[2025-02-25 22:18] LABS: Lactate (Lactic Acid) 1.9 mMol/L (0.4-2.0)
[2025-02-25] MEDS: cefTRIAXone/D5w 1gm IV premix 1 GM/50 ML BAG IV (22:18)
[2025-02-25 22:21] LABS: Basophils # (Auto) 0.0 Thou/mm3 (0.0-0.2); Basophils % (Auto) 0 % (0-2.5); Eosinophils # (Auto) 0.1 Thou/mm3 (0.0-0.5); Eosinophils % (Auto) 1 % (0-10); Hematocrit 29.0 % (36.0-46.0); Immature Granulocytes Auto 0.04 Thou/mm3 (0.00-0.00); Lymphocytes # (Auto) 1.0 Thou/mm3 (1.0-4.8); Lymphocytes % (Auto) 10 % (10-50); Mean Corpuscular HGB Conc 29.3 g/dl (31.0-37.0); Mean Corpuscular Hemoglobin 19.1 pg (25.0-35.0); Mean Corpuscular Volume 65 fL (80-100); Monocytes # (Auto) 0.4 Thou/mm3 (0.0-0.8); Monocytes % (Auto) 4 % (0-12); Neutrophils # (Auto) 8.5 Thou/mm3 (1.8-7.7); Neutrophils % (Auto) 84 % (37-80); Nucleated Red Blood Cell # 0.00 Thou/mm3 (0.00-0.00); Nucleated Red Blood Cell % 0 /100 WBC (0); Platelet Count 285 Thou/mm3 (140-440); RDW Standard Deviation 43.6 fL (36.4-46.3); Red Blood Count 4.46 Miln/mm3 (4.00-5.20); White Blood Count 10.1 Thou/mm3 (3.6-11.0)
[2025-02-25 22:25] LABS: Hemoglobin 8.5 g/dL (12.0-16.0)
[2025-02-25] MEDS: RINGERS LACTATED 1000 ML 1,000 ML 999 ML IV (22:40)
[2025-02-25 23:00] LABS: Magnesium 1.7 mg/dL (1.6-2.6); Phosphorous 1.3 mg/dL (2.4-5.1)
[2025-02-25 23:11] VITALS: TEMP 37.9
[2025-02-25 23:12] LABS: B-Type Natriuretic Peptide < 20 pg/mL (0-100)
[2025-02-25 23:21] VITALS: BP 114/66; PULSE 107; RESP 18; TEMP 37.9; O2SAT 97
[2025-02-25 23:21] LABS: Procalcitonin 0.14 ng/ml (0.0-0.49)
[2025-02-26 00:50] LABS: Collection Type, Urine Clean Catch
[2025-02-26 00:58] LABS: Bilirubin,Urine Negative (Negative); Blood,Urine Negative (Negative); Clarity,Urine Clear (Clear/Hazy); Color,Urine Lt-Yellow (Lt Yel-Yel); Culture Indicated,Urine Not Indicated; Glucose, Urine Negative (Negative); Ketones,Urine Trace (Negative); Leukocyte Esterase,Urine Negative (Negative); Nitrite,Urine Negative (Negative); PH,Urine 6.5 (5.0-7.0); Protein,Urine Negative (Neg - Trace); RBC,Urine 2 /hpf (0-3); Specific Gravity,Urine 1.007 (1.001-1.035); Squamous Epithelial Cell,Urine 1 /hpf (0-5); Urobilinogen,Urine Negative mg/dL (0.0-1.0); WBC,Urine 2 /hpf (0-5)
[2025-02-26 01:03] LABS: HCG Qualitative,Urine Negative
[2025-02-26] MEDS: PROCHLORPERAZINE INJ 5 MG/ML VIAL 2 ML IV (01:21)
[2025-02-26] MEDS: MORPHINE SULF INJ 4 MG/ML VIAL IVP (01:21)
[2025-02-26 01:28] VITALS: BP 101/53; PULSE 90; RESP 18; TEMP 37.1; O2SAT 97
[2025-02-26 11:02] LABS: Salmonella Species PCR Positive (Negative)
[2025-02-26 17:35] LABS: Campylobacter PCR Negative (Negative); Shiga Toxin PCR Negative (Negative); Shigella Species PCR Negative (Negative)
== END 2025-02-26 02:32 | disposition home or self-care (01) ==
PROVIDERS: Nurse Practitioner Family; Emergency Provider Emergency Medicine; PCP Physician Assistant
DX: R19.7 Diarrhea, unspecified (principal); N83.202 Unspecified ovarian cyst, left side
CPT/HCPCS: 36415; 74176; 80053; 81001; 81025; 83605; 83690; 83735; 83880; 84100; 84145; 84484; 85025; 87015; 87040; 87045; 87046; 87899; 93005; 96360; 96361; 96365; 96375; 99283; J0696; J0780; J2270; J7030; J7120; A9270

== ENCOUNTER 2025-04-16 17:06 | Emergency (ER) | payer MEDICAID, SELFPAY ==
[2025-04-16 17:15] VITALS: BP 122/79; PULSE 91; RESP 18; TEMP 36.6; O2SAT 96; BMI 41.6
--- NOTE | 2025-04-16 17:20 | XR_ITS ---
EXAMINATION: Right ankle 2 views TECHNIQUE: AP lateral right ankle 2 views Date and time: April 16, 2025, 1733 hours INDICATIONS: Twisting injury to the ankle today, ankle pain. FINDINGS: No ankle fracture or dislocation Lateral malleolar medial malleolar soft tissue swelling IMPRESSION: No fracture or dislocation
--- NOTE | 2025-04-16 17:20 | XR_ITS ---
Examination: Foot, right, 3 views Technique: AP, oblique, lateral views foot, 3 views Date and time of exam: April 16, 2025, 1730 hours INDICATIONS: Patient fell today with injury of the right foot, right foot pain. FINDINGS: No acute fracture No dislocation No foreign body IMPRESSION: No acute fracture
--- NOTE | 2025-04-16 17:52 | EDNOTE_ITS ---
Lower Extremity Injury RME/HPI General Chief Complaint: Ankle/Foot Injury Stated Complaint: TWISTED R) ANKLE Time Seen by Provider: 04/16/25 17:18 Arrival date/time: 04/16/25 17:06 This is a case of 24-year-old female with no medical history came in in the emergency room due to right ankle and foot pain patient tripped and fell and accidentally twisted her right ankle no other injury noted denies any numbness weakness or tingling sensation Limitations: no limitations Related Data Previous Rx's ?Medication ?Instructions ?Recorded medroxyprogesterone 10 mg tablet 10 mg PO QDAY #10 tab s 10/04/24 (Provera) tranexamic acid 650 mg tablet 650 mg PO Q12H #14 tabs 10/04/24 vitamins no.68-iron 28 1 cap PO QDAY #30 caps 10/25/24 mg-folate no.6 1 mg-dha 400 mg capsule (Prenate Enhance) hydrocodone 5 mg-acetaminophen 325 1 tab PO Q6HR PRN p ain #16 tabs 02/26/25 mg tablet hyoscyamine sulfate 0.125 mg 0.125 mg PO TID PRN cram ping #10 02/26/25 tablet (Levsin) tabs loperamide 2 mg tablet (Imodium 2 mg PO Q6H PRN loose stool #7 tabs 02/26/25 A-D) promethazine 25 mg tablet 25 mg PO TID PRN nausea and 02/26/25 vomiting #14 tabs ibuprofen 800 mg tablet 800 mg PO Q8H PRN pain #20 t abs 04/16/25 Allergies Allergy/AdvReac Type Severity Reaction Status Date / Time No Known Allergies Allergy Verified 04/16/25 17:08 Review of Systems Review of Systems Systems Reviewed: All systems reviewed, normal except as documented Constitutional Constitutional: Reports system reviewed and no additional complaints, except as documented and Reports as per HPI Cardiovascular Cardiovascular: Reports system reviewed and no additional complaints, except as documented and Reports as per HPI Respiratory Respiratory: Reports system reviewed and no additional complaints, except as documented and Reports as per HPI Gastrointestinal Gastrointestinal: Reports system reviewed and no additional complaints, except as documented and Reports as per HPI Musculoskeletal Musculoskeletal: Reports system reviewed and no additional complaints, except as documented and Reports as per HPI Neurologic Neurologic: Reports system reviewed and no additional complaints, except as documented and Reports as per HPI Past Medical History Past Medical History CARDIAC: Negative Congestive Heart Failure RESPIRATORY: Negative Chronic Obstructive Pulmonary Disease (COPD) GENITOURINARY: Negative Renal Disease ENDOCRINE: Negative Diabetes Mellitus Type 1 or Diabetes Mellitus Type 2 Social History SMOKING STATUS: Never smoker ED Exam General Limitations: Present no limitations General appearance: Present alert, in no apparent distress and other (Patient is awake alert oriented not in distress nontoxic looking well-hydrated well- nourished) Head Head exam: Present atraumatic, normocephalic and normal inspection Eye Eye exam: Present normal appearance, PERRL and EOMI ENT ENT exam: Present normal exam, normal oropharynx and mucous membranes moist Neck Neck exam: Present normal inspection, full ROM and trachea midline; Absent tenderness, meningismus or lymphadenopathy Chest Chest inspection: Present normal inspection and symmetric chest wall rise; Absent tenderness Respiratory Respiratory exam: Present normal lung sounds bilaterally; Absent respiratory distress, wheezes, stridor, accessory muscle use or prolonged expiratory phase Cardiovascular Cardiovascular exam: Present regular rate, normal rhythm and normal heart sounds; Absent bradycardia, tachycardia, irregular rhythm, systolic murmur or diastolic murmur Abdominal Exam Abdominal exam: Present soft and normal bowel sounds; Absent distention, tend erness, guarding, rebound, rigidity, diminished bowel sounds, hyperactive bowel sounds, hypoactive bowel sounds or organomegaly Extremities Exam Extremities exam: Present normal inspection and full ROM Expanded Lower Extremity Exam Lower leg exam: Absent Homans' sign or Achilles tendon intact Ankle exam: Present tenderness, swelling and other (ROM intact neurovascular intact); Absent abrasion, laceration, ecchymosis, deformity, crepitus, dislocation, erythema, tenderness over talofibular lig or anterior draw sign Foot/toe exam: Present tenderness, swelling and other (ROM intact neurovascular intact); Absent abrasion, laceration, ecchymosis, deformity, crepitus, dislocation, erythema, amputation, puncture wound, foreign body, calcaneal tenderness, tenderness at base of 5th metatarsal, nail avulsion or subungual hematoma Back Exam Back exam: Present normal inspection and full ROM Neurological Exam Neurological exam: Present alert, oriented X3, CN II-XII intact, normal gait (Unable due to pain in the right ankle and foot) and reflexes normal; Absent motor sensory deficit Psychiatric Psychiatric exam: Present normal affect and normal mood Skin Skin exam: Present warm, dry, intact and normal color Course Quality Measures none Orders Category Date Time Status Splint / Immobilizer STAT Care 04/16/25 18:01 Active XR ankle RT 2V Stat Exams 04/16/25 17:20 Completed XR foot comp RT min 3V Stat Exams 04/16/25 17:20 Completed HYDROcodone*/APAP 5/325 [[place] 5/325] Med 04/16/25 18:00 Discontinued 1 tab PO X1 ONE Vital Signs Vital signs: Vital Signs Temperature 98 F 04/16/25 17:15 Pulse Rate 91 04/16/25 17:15 Respiratory Rate 18 04/16/25 17:15 Blood Pressure 122/79 04/16/25 17:15 Pulse Oximetry (%) 96 04/16/25 17:15 Oxygen Delivery Method Room Air 04/16/25 17:15 Oxygen saturation is 96% in room air Extremity Injury, Lower MDM Narrative MDM Narrative:: This is a case of 24-year-old female with no medical history came in in the emergency room due to right ankle and foot pain patient tripped and fell and accidentally twisted her right ankle no other injury noted denies any numbness weakness or tingling sensation patient is awake alert oriented not in distress nontoxic looking well-hydrated well-nourished noted moderate tenderness on the right lateral side of the ankle and foot no crepitation no deformity with swelling ROM intact neurovascular intact x-ray showed no fracture no dislocation Aircast on the right ankle was applied patient tolerated well neurovascular in tact RICE treatment will continue by the patient at home patient was prescribed ibuprofen for pain patient will follow-up with PCP if symptoms persist need to see a orthopedic surgeon to have MRI to rule out ligament injury for any worsening symptoms or any emergent concern call 911 or go to the nearest emergency room Patient was discharged with comfortable condition walking with stable gait. Nano ent verbalized no further complains explained diagnosis and answered patient question. Patient is comfortable with the proposed management plan including the need to follow up with his/her primary care physician and any specialist if applicable Discussed patient for any urgent condition or worsening sx, He/She needed to go to emergency room immediately or call 911. Patient acknowledge the responsibility to follow up as instructed and to monitor her/his symptoms. For any persistence of the symptoms for more than 3-5 days return precaution advised. Discussed the result of the test and was given printed discharge instruction Patient data External records reviewed:: [facility] previous records Clinical information provided by:: patient Social determinants that could affect healthcare access:: none Patient has the following chronic illnesses:: none How is presenting disease/condition affected by chronic disease/condition?: no chronic disease Evaluation data The following diagnostics were reviewed and interpreted by me:: radiology exam(s) Lab and/or radiology exams considered but not ordered:: reviewed Interpretation Summary: reviewed Medications / Prescriptions Medications or Prescriptions considered but not ordered:: given Medication administrations:: Medication Administration History Discontinued Medications Hydrocodone Bitart/Acetaminophen (Hydrocodone/Apap 5/325 Tablet) 1 tab PO X1 ONE Stop: 04/16/25 18:01 given Consultations Consultation(s) initiated? (list below): No Diagnosis Extremity Injury, Lower Differential Diagnosis: ankle sprain and strain, fracture of toe and ankle fracture Most likely diagnosis given after review of the tests above:: foot sprain ankle sprain Admission Indicated Admission indicated?: not indicated Explain why admission is indicated or not indicated:: not indicated Admission Request Was there a request for admission?: No Disposition Plan Disposition Plan: Discharge Discharge Attestation Discharge Attestation: The patient and all family members were given an opportunity to ask questions and understood the discharge instructions. Discharge instructions specifically effects, indications for sooner follow up or return to the emergency department, and the expected course of current diagnosis. Patient condition: Stable Discharge Plan Plan Patient Disposition: HOME (Self Care) Patient condition on transfer: Stable Prescriptions/Referrals Prescriptions/Med Rec: New ibuprofen 800 mg tablet 800 mg PO Q8H PRN (Reason: pain) Qty: 20 0RF No Action Prenate Enhance 28 mg iron- 1 mg-400 mg capsule 1 cap PO QDAY Qty: 30 0RF medroxyprogesterone [Provera] 10 mg tablet 10 mg PO QDAY Qty: 10 0RF tranexamic acid 650 mg tablet 650 mg PO Q12H Qty: 14 0RF promethazine 25 mg tablet 25 mg PO TID PRN (Reason: nausea and vomiting) Qty: 14 0RF hyoscyamine sulfate [Levsin] 0.125 mg tablet 0.125 mg PO TID PRN (Reason: cramping) Qty: 10 0RF loperamide [Imodium A-D] 2 mg tablet 2 mg PO Q6H PRN (Reason: loose stool) Qty: 7 0RF hydrocodone-acetaminophen 5-325 mg tablet 1 tab PO Q6HR MDD 10mg PRN (Reason: pain) Qty: 16 0RF Referrals: Narayan Peguero PA-C [Primary Care Provider] - In 1 week Problem List Clinical Impression: Sprain of ankle, Right foot sprain Patient/Caregiver Discharge Instructions Education Materials: Self-Care for Strains and Sprains, ED MORE Wrap, ED Foot Sprain, ED Ankle Sprain (Adult), ED RICE Additional Instructions: Follow-up with your primary care physician in 2 days for reevaluation and if symptoms persist need to see a orthopedic surgeon for MRI to rule out ligament injury for any worsening symptoms or any emergent concern return precaution in the ER is advised ice pack every 2 hours for 20 minutes for 24 hours then alternate with warm compress elevate to decrease swelling no weightbearing on the right ankle keep the air cast in place until cleared by your primary care for physician use of crutches for ambulation is adsvied Print Language: Yak[place] Stand Alone Forms: Demetra Award Info., Patient Portal Info Letter YOEL/BENJIE Supervising Physician YOEL/BENJIE Supervising Physician: dr [email or web address]
[2025-04-16] MEDS: HYDROcodone/APAP 5/325 TABLET 1 TAB PO (18:11)
== END 2025-04-16 18:46 | disposition home or self-care (01) ==
PROVIDERS: Emergency Provider Emergency Medicine; PCP Physician Assistant
DX: S93.401A Sprain of unspecified ligament of right ankle, initial encounter (principal); S93.601A Unspecified sprain of right foot, initial encounter; W01.0XXA Fall on same level from slipping, tripping and stumbling without subsequent striking against object, initial encounter
CPT/HCPCS: 73600; 73630; 99283; A9270